=== PATIENT | female | born 1985 | race Caucasian/White ===

== ENCOUNTER 2024-03-07 17:28 | Emergency (ER) | payer BC ==
[~2024-03-07] VITALS: Ht 172.7 cm; Wt 62.6 kg
[2024-03-07 17:45] VITALS: TEMP 98.1
[2024-03-07] MEDS ORDERED: ALBUTEROL/IPRATROPIUM 3 ML NEB NEB ONE (18:00)
[2024-03-07 18:14] LABS: BASOPHILS % 0.3 % (0.0-1.0); EOSINOPHILS # (AUTO) 0.1 (0.0-0.4); HEMATOCRIT 40.3 % (34.2-44.1); LYMPHOCYTES # (AUTO) 2.1 (1.0-3.2); LYMPHOCYTES % 17.2 % (18.0-39.1); MEAN CORPUSCULAR HEMOGLOBIN 30.2 pg (28-32); MEAN CORPUSCULAR HGB CONC 32.3 g/dL (31-35); MEAN CORPUSCULAR VOLUME 93.5 fL (81-99); MONOCYTES # (AUTO) 0.9 (0.2-0.8); MONOCYTES % 7.3 % (4.4-11.3); NEUTROPHILS % 73.7 % (38.7-80.0); PLATELET COUNT 242 x10e3/uL (140-360); RED BLOOD COUNT 4.31 x10e6/uL (3.6-5.1); RED CELL DISTRIBUTION WIDTH 13.2 % (11.7-14.4)
[2024-03-07 18:23] LABS: ALBUMIN 3.7 g/dL (3.5-5.0); ALBUMIN/GLOBULIN RATIO 1.2 (0.8-2.0); ANION GAP 12.5 mmol/L (8-16); BILIRUBIN,TOTAL 0.4 mg/dL (0.2-1.2); CALCIUM 8.8 mg/dL (8.4-10.2); CREATININE, SERUM 0.83 mg/dL (0.57-1.11); POTASSIUM 3.5 mmol/L (3.5-5.1); TOTAL PROTEIN 6.8 g/dL (6.5-8.1)
[2024-03-07 18:29] LABS: TROPONIN I 0.003 ng/mL (0-0.300)
[2024-03-07] MEDS ORDERED: IOPAMIDOL 370 MG/ML 100 ML INFUS..BTL INJ ONE (18:39)
[2024-03-07] MEDS: METHYLPREDNISOLONE SOD SUCC 125 MG/2ML VIAL IV STA (19:23)
[2024-03-07] MEDS: KETOROLAC TROMETHAMINE 30 MG/ML VIAL IV STA (20:12)
[2024-03-07 22:30] VITALS: PULSE 74; RESP 18; O2SAT 98
[2024-03-07] MEDS ORDERED: AZITHROMYCIN250 MG PO (22:36)
[2024-03-07] MEDS ORDERED: VENTOLIN HFA18 GM INH (22:36)
[2024-03-07] MEDS ORDERED: PREDNISONE20 MG PO (22:36)
== END 2024-03-07 22:40 | disposition home or self-care (01) ==
LOC: ER 18:00
DX: R06.02 Shortness of breath (principal); J45.909 Unspecified asthma, uncomplicated; F31.9 Bipolar disorder, unspecified; Z11.52 Encounter for screening for COVID-19
CPT/HCPCS: 36415; 71260; 80053; 82550; 83690; 83880; 84484; 85025; 93005; 99284; J1885; J2919; Q9967; U0002